=== PATIENT | female | born 1990 | race Caucasian/White ===

== ENCOUNTER 2017-05-14 12:59 | Outpatient (CLI) | payer BC ==
[~2017-05-14] VITALS: Ht 167.6 cm; Wt 102.3 kg
[2017-05-14] MEDS ORDERED: GLUCOPHAGE1000 MG PO (13:12)
[2017-05-14] MEDS ORDERED: PRILOSEC 20MG20 MG PO (13:12)
[2017-05-14] MEDS ORDERED: PRENATAL1 TA7 PO (13:12)
[2017-05-14 13:13] VITALS: BP 134/86; PULSE 116; TEMP 98.4
[2017-05-14 14:00] VITALS: BP 121/74; PULSE 107
[2017-05-14 14:25] VITALS: BP 134/71; PULSE 105
== END 2017-05-14 14:30 | disposition home or self-care (01) ==
LOC: LDRO 12:59
DX: Z34.83 Encounter for supervision of other normal pregnancy, third trimester (principal); Z3A.36 36 weeks gestation of pregnancy